=== PATIENT | male | born 1990 | race Caucasian/White ===

== ENCOUNTER 2017-01-01 21:17 | Emergency (ER) | payer OTHER ==
[2017-01-01 22:09] LABS: HEMOGLOBIN 16.9 gm/dl (14.0-17.5); RED BLOOD COUNT 5.52 M/UL (4.20-5.50); WHITE BLOOD COUNT 11.7 K/UL (4.5-11.0)
[2017-01-01 22:30] LABS: BUN/CREATININE RATIO 21 (0-10)
== END 2017-01-02 00:15 | disposition left against medical advice (07) ==
LOC: ER1 21:17
PROVIDERS: Family Medicine
DX: G40.909 Epilepsy, unspecified, not intractable, without status epilepticus (principal); Z53.29 Procedure and treatment not carried out because of patient's decision for other reasons
CPT/HCPCS: 36415; 70496; 71010; 80053; 82550; 82553; 83874; 84484; 85025; 85610; 93005; 99285; J7050; Q9963